=== PATIENT | male | born 1960 | race Caucasian/White ===

== ENCOUNTER → 2019-09-09 | Outpatient (CLI) | payer BC ==
[~2019-09-09] VITALS: Ht 172.7 cm; Wt 83.4 kg
[~2019-09-09] MED LIST: COZAAR 25MG25 MG/TAB PO; PERCOCET 325 MG1 TA2 PO
[2019-09-09 12:06] VITALS: BP 161/94; PULSE 73
[2019-09-09 13:15] VITALS: BP 140/96; PULSE 69
== END ==
LOC: COL.RAD 11:45
DX: M54.5 Low back pain (principal)
CPT/HCPCS: J3301; Q9965